=== PATIENT | male | born 1970 | race Caucasian/White ===

== ENCOUNTER 2024-01-24 07:27 | Inpatient (IN) | payer OTHER ==
[~2024-01-24] VITALS: Ht 162.6 cm; Wt 72.6 kg
[2024-01-24] VITALS (8 sets, daily range): BP systolic 119–134; BP diastolic 78–79; PULSE 66–86; RESP 14–20; TEMP 97.7–98; O2SAT 94–99
[~2024-01-24 07:27] MED LIST: ATIVAN1 MG PO; HYDROCODONE-ACET5 M1; TOBRAMYCIN 1.2GM BULK BOTTLE ONE; TYLENOL325 MG PO; Vancomycin IV 1 GM VIAL ONE
[2024-01-24] MEDS ORDERED: SODIUM CHLORIDE 0.9% 500ML 500 ML ONE (08:05)
[2024-01-24] MEDS ORDERED: Vancomycin IV 1,000 MG ONE (08:05)
[2024-01-24] MEDS ORDERED: TRANEXAMIC ACID 20 ML ONE (08:06)
[2024-01-24] MEDS: Vancomycin IV 1 GM VIAL ONE (09:05)
[2024-01-24] MEDS: LACTATED RINGER'S 1,000 ML ONE (09:05)
[2024-01-24] MEDS: DEXAMETHASONE SOD PHOS 10 MG/1 ML VIAL ONE (09:06)
[2024-01-24] MEDS: GABAPENTIN 300 MG CAP ONE (09:06)
[2024-01-24] MEDS: CELECOXIB 200 MG CAP ONE (09:06)
[2024-01-24] MEDS: SODIUM CHLORIDE 0.9% 250ML 250 ML ONE (09:07)
[2024-01-24] MEDS ORDERED: ACETAMINOPHEN 650 MG SUPP PR PRN (12:00)
[2024-01-24] MEDS ORDERED: ONDANSETRON HCL INJ 2MG/ML 2ML 2 MG/ML VIAL IV PRN (12:00)
[2024-01-24] MEDS ORDERED: DIPHENHYDRAMINE HCL INJ 50 MG/ML VIAL IV PRN (12:00)
[2024-01-24] MEDS ORDERED: DOCUSATE SODIUM 100 MG CAP PO PRN (12:00)
[2024-01-24] MEDS: HYDROMORPHONE 1MG/1ML INJ ONE ×2 (12:12→12:47)
[2024-01-24] MEDS: HYDROCODONE/APAP 7.5MG-325MG 1 EA TAB PO PRN (12:40)
[2024-01-24] MEDS ORDERED: HYDROMORPHONE 1MG/1ML INJ ONE (12:56)
[2024-01-24] MEDS ORDERED: LIDOCAINE HCL 2% LOCAL INJ 5 ML SDV VIAL INJ ONE (12:56)
[2024-01-24] MEDS ORDERED: PROPOFOL IV EMULSION 10 MG/ML 20 ML VIAL ONE (12:56)
[2024-01-24] MEDS ORDERED: ONDANSETRON HCL INJ 2MG/ML 2ML 2 MG/ML VIAL ONE (12:56)
[2024-01-24] MEDS ORDERED: SEVOFLURANE INHAL SOLN 250 ML PEN BTL ONE (12:56)
[2024-01-24] MEDS ORDERED: SODIUM CHLORIDE 0.9% INJ 100 ML BAG ONE (12:56)
[2024-01-24] MEDS ORDERED: DEXMEDETOMIDINE HCL 200 MCG/2 ML VIAL ONE (12:56)
[2024-01-24] MEDS ORDERED: ACETAMINOPHEN 1000 MG/100 ML IV ONE (12:56)
[2024-01-24] MEDS ORDERED: DEXAMETHASONE SOD PHOS INJ 4 MG/ML SDV ONE (12:56)
[2024-01-24] MEDS: ROPIVACAINE 246.25 MG, EPINEPHRINE HCL 1:1000 1ML 0.5 MG, CLONIDINE HCL 0.08 MG, KETORO... INJ ONE (13:22)
[2024-01-24] MEDS ORDERED: ROPIVACAINE 0.5% 5 MG/ML 30 ML SDV ONE (13:43)
[2024-01-24] MEDS: NICOTINE 21 MG/EA PATCH TOP PRN (14:32)
[2024-01-24] MEDS: LORAZEPAM 1 MG TAB PO PRN (14:32)
[2024-01-24] MEDS ORDERED: ACETAMINOPHEN 1000 MG/100 ML IV PRN (15:00)
[2024-01-24 15:33] LABS: BASOPHILS % 0.3 % (0.0-1.0); EOSINOPHILS % 0.1 % (0.0-6.0); HEMATOCRIT 37.3 % (38.2-49.6); HEMOGLOBIN 12.1 g/dL (14.0-18.0); LYMPHOCYTES # (AUTO) 0.5 (1.0-3.2); LYMPHOCYTES % 5.9 % (18.0-39.1); MEAN CORPUSCULAR HGB CONC 32.4 g/dL (31-35); MEAN CORPUSCULAR VOLUME 89.4 fL (81-99); MONOCYTES % 0.3 % (4.4-11.3); NEUTROPHILS % 92.7 % (38.7-80.0); PLATELET COUNT 414 x10e3/uL (140-360); RED BLOOD COUNT 4.17 x10e6/uL (4.3-5.7); RED CELL DISTRIBUTION WIDTH 15.7 % (11.7-14.4); WHITE BLOOD COUNT 8.65 x10e3/uL (4.8-10.8)
[2024-01-24] MEDS: SODIUM CHLORIDE 0.9% 1000ML 1,000 ML IV SCH (16:20)
[2024-01-24] MEDS: CELECOXIB 200 MG CAP PO SCH (16:21)
[2024-01-24] MEDS: ASPIRIN 325 MG TAB PO SCH (16:21)
[2024-01-24] MEDS ORDERED: FENTANYL CITRATE/PF 100MCG/2 ML INJ ONE (17:22)
[2024-01-24] MEDS ORDERED: MIDAZOLAM HCL 2 MG/2 ML VIAL ONE (17:22)
[2024-01-24] MEDS ORDERED: Vancomycin IV 1 GM in SODIUM CHLORIDE 0.9% 250ML 250 ML IV SCH (18:00)
[2024-01-24] MEDS: Vancomycin IV 1 GM in SODIUM CHLORIDE 0.9% 250ML 250 ML IV SCH (19:50)
[2024-01-25] VITALS (10 sets, daily range): BP systolic 121–139; BP diastolic 73–87; PULSE 53–74; RESP 16–20; TEMP 97.3–98.4; O2SAT 96–100
[2024-01-25] MEDS ORDERED: POLYETHYLENE GLYCOL 3350 17 GM PACK PO PRN (00:15)
[2024-01-25] MEDS ORDERED: HYDRALAZINE HCL 20 MG/ML VIAL IV PRN (00:15)
[2024-01-25 06:47] LABS: BASOPHILS % 0.2 % (0.0-1.0); EOSINOPHILS % 0.1 % (0.0-6.0); HEMATOCRIT 35.4 % (38.2-49.6); HEMOGLOBIN 11.3 g/dL (14.0-18.0); LYMPHOCYTES # (AUTO) 1.9 (1.0-3.2); MEAN CORPUSCULAR HEMOGLOBIN 28.7 pg (28-32); MEAN CORPUSCULAR HGB CONC 31.9 g/dL (31-35); MEAN CORPUSCULAR VOLUME 89.8 fL (81-99); MONOCYTES % 6.5 % (4.4-11.3); NEUTROPHILS # (AUTO) 12.8 (2.1-6.9); NEUTROPHILS % 80.7 % (38.7-80.0); PLATELET COUNT 382 x10e3/uL (140-360); RED BLOOD COUNT 3.94 x10e6/uL (4.3-5.7); RED CELL DISTRIBUTION WIDTH 15.2 % (11.7-14.4); WHITE BLOOD COUNT 15.88 x10e3/uL (4.8-10.8)
[2024-01-25 07:23] LABS: ALBUMIN 3.2 g/dL (3.5-5.0); ALKALINE PHOSPHATASE 81 IU/L (40-150); ANION GAP 11.7 mmol/L (8-16); BILIRUBIN,TOTAL 0.3 mg/dL (0.2-1.2); BLOOD UREA NITROGEN 14 mg/dL (7-26); BUN/CREATININE RATIO 20 (6-25); CALCIUM 8.8 mg/dL (8.4-10.2); CARBON DIOXIDE 23 mmol/L (22-29); CHLORIDE 108 mmol/L (98-107); CHOL/HDL RATIO 3.2 (3.9-4.7); CHOLESTEROL 184 MD/DL (0-199); CREATININE, SERUM 0.69 mg/dL (0.72-1.25); EST GLOMERULAR FILTRATION RATE 110 ML/MIN (>=60); GLUCOSE 124 mg/dL (74-118); HDL CHOLESTEROL 57 MG/DL (40-60); LDL CHOLESTEROL 111 MG/DL (60-130); MAGNESIUM 1.9 MG/DL (1.3-2.1); PHOSPHORUS 2.5 MG/DL (2.3-4.7); POTASSIUM 3.7 mmol/L (3.5-5.1); SODIUM 139 mmol/L (136-145); TOTAL PROTEIN 6.4 g/dL (6.5-8.1); TRIGLYCERIDES 78 MG/DL (0-149)
[2024-01-25 07:29] LABS: ALANINE AMINOTRANSFERASE < 6 IU/L (0-55)
[2024-01-25 07:45] LABS: FREE T4 (FREE THYROXINE) 1.11 ng/dL (0.8-1.8)
[2024-01-25] MEDS: DOCUSATE SODIUM 100 MG CAP PO SCH (09:00)
[2024-01-25] MEDS: FAMOTIDINE 20 MG/2 ML VIAL IV SCH (10:15)
[2024-01-25] MEDS: HYDROCODONE/APAP 5MG-325MG TAB PO PRN (11:34)
[2024-01-25] MEDS ORDERED: DRONABINOL10 MG PO (16:04)
[2024-01-25] MEDS ORDERED: HYDROCODON-ACE1 EA12 PO (16:04)
[2024-01-25] MEDS ORDERED: CETIRIZINE HCL10 MG PO (16:04)
[2024-01-25] MEDS ORDERED: ATIVAN0.5 MG PO (16:04)
[2024-01-25] MEDS: ZOLPIDEM TARTRATE 5 MG TAB PO PRN (21:49)
[2024-01-26] VITALS (10 sets, daily range): BP systolic 115–149; BP diastolic 74–94; PULSE 53–66; RESP 16–20; TEMP 97.5–98.1; O2SAT 98–100
[2024-01-26 06:22] LABS: BASOPHILS # (AUTO) 0.1 (0.0-0.1); BASOPHILS % 0.8 % (0.0-1.0); EOSINOPHILS # (AUTO) 0.2 (0.0-0.4); EOSINOPHILS % 1.6 % (0.0-6.0); HEMATOCRIT 34.6 % (38.2-49.6); HEMOGLOBIN 10.9 g/dL (14.0-18.0); LYMPHOCYTES # (AUTO) 4.3 (1.0-3.2); LYMPHOCYTES % 39.9 % (18.0-39.1); MEAN CORPUSCULAR HEMOGLOBIN 28.8 pg (28-32); MEAN CORPUSCULAR HGB CONC 31.5 g/dL (31-35); MEAN CORPUSCULAR VOLUME 91.3 fL (81-99); MONOCYTES # (AUTO) 0.6 (0.2-0.8); MONOCYTES % 5.9 % (4.4-11.3); NEUTROPHILS # (AUTO) 5.5 (2.1-6.9); NEUTROPHILS % 51.4 % (38.7-80.0); PLATELET COUNT 367 x10e3/uL (140-360); RED BLOOD COUNT 3.79 x10e6/uL (4.3-5.7); RED CELL DISTRIBUTION WIDTH 16.1 % (11.7-14.4); WHITE BLOOD COUNT 10.69 x10e3/uL (4.8-10.8)
[2024-01-26 06:41] LABS: ANION GAP 11.7 mmol/L (8-16); CALCIUM 8.8 mg/dL (8.4-10.2); CREATININE, SERUM 0.68 mg/dL (0.72-1.25); POTASSIUM 3.7 mmol/L (3.5-5.1)
[2024-01-26] MEDS ORDERED: ASPIRIN81 MG PO (16:56)
[2024-01-27] VITALS (8 sets, daily range): BP systolic 118–149; BP diastolic 72–82; PULSE 53–64; RESP 16–18; TEMP 97.8–98.1; O2SAT 95–100
[2024-01-27] MEDS: FAMOTIDINE 20 MG TAB PO SCH (08:05)
[2024-01-27] MEDS: ACETAMINOPHEN 325 MG TAB PO PRN (16:00)
[2024-01-27] MEDS: Vancomycin IV 1 GM in SODIUM CHLORIDE 0.9% 250ML 250 ML IV SCH (17:07)
[2024-01-27] MEDS: ONDANSETRON HCL 4 MG ORAL DISINTEGRATING TAB PO PRN (18:32)
[2024-01-28] VITALS (10 sets, daily range): BP systolic 121–143; BP diastolic 78–86; PULSE 55–64; RESP 17–20; TEMP 97.5–98.2; O2SAT 94–100
[2024-01-29] VITALS (10 sets, daily range): BP systolic 119–139; BP diastolic 67–83; PULSE 55–66; RESP 16–18; TEMP 97.4–98.2; O2SAT 97–100
[2024-01-29 05:29] LABS: BASOPHILS # (AUTO) 0.1 (0.0-0.1); BASOPHILS % 1.1 % (0.0-1.0); EOSINOPHILS # (AUTO) 0.6 (0.0-0.4); EOSINOPHILS % 7.1 % (0.0-6.0); HEMATOCRIT 36.7 % (38.2-49.6); HEMOGLOBIN 11.7 g/dL (14.0-18.0); LYMPHOCYTES # (AUTO) 2.8 (1.0-3.2); LYMPHOCYTES % 33.2 % (18.0-39.1); MEAN CORPUSCULAR HEMOGLOBIN 28.7 pg (28-32); MEAN CORPUSCULAR HGB CONC 31.9 g/dL (31-35); MEAN CORPUSCULAR VOLUME 90.2 fL (81-99); MONOCYTES # (AUTO) 0.6 (0.2-0.8); MONOCYTES % 6.6 % (4.4-11.3); NEUTROPHILS # (AUTO) 4.3 (2.1-6.9); NEUTROPHILS % 51.4 % (38.7-80.0); PLATELET COUNT 366 x10e3/uL (140-360); RED BLOOD COUNT 4.07 x10e6/uL (4.3-5.7); RED CELL DISTRIBUTION WIDTH 15.3 % (11.7-14.4); WHITE BLOOD COUNT 8.43 x10e3/uL (4.8-10.8)
[2024-01-29 05:52] LABS: ANION GAP 13.7 mmol/L (8-16); CALCIUM 9.2 mg/dL (8.4-10.2); CREATININE, SERUM 0.79 mg/dL (0.72-1.25); MAGNESIUM 1.9 MG/DL (1.3-2.1); PHOSPHORUS 3.3 MG/DL (2.3-4.7); POTASSIUM 3.7 mmol/L (3.5-5.1)
[2024-01-30] VITALS (8 sets, daily range): BP systolic 121–142; BP diastolic 78–86; PULSE 54–64; RESP 17–21; TEMP 97.4–98.1; O2SAT 96–100
== END 2024-01-30 22:18 | disposition home or self-care (01) | DRG 467 ==
LOC: OR 07:27 → PACU V 11:47 → MED/SURG3 13:32
PROVIDERS: ADMIT Specialist; ATTEND Specialist
PROC: 0SRD0EZ Replacement of Left Knee Joint with Articulating Spacer, Open Approach (ICD-10-PCS; 2024-01-24)
PROC: B548ZZA Ultrasonography of Superior Vena Cava, Guidance (ICD-10-PCS; principal; 2024-01-24 09:59)
PROC: 02HV33Z Insertion of Infusion Device into Superior Vena Cava, Percutaneous Approach (ICD-10-PCS; principal; 2024-01-24 09:59)
PROC: 0SPD0JZ Removal of Synthetic Substitute from Left Knee Joint, Open Approach (ICD-10-PCS; principal; 2024-01-24 09:59)
DX: T84.54XA Infection and inflammatory reaction due to internal left knee prosthesis, initial encounter (principal); M00.062 Staphylococcal arthritis, left knee; T84.84XA Pain due to internal orthopedic prosthetic devices, implants and grafts, initial encounter; B95.7 Other staphylococcus as the cause of diseases classified elsewhere; Y79.2 Prosthetic and other implants, materials and accessory orthopedic devices associated with adverse incidents; Y92.89 Other specified places as the place of occurrence of the external cause; M25.562 Pain in left knee; M25.561 Pain in right knee; F41.9 Anxiety disorder, unspecified; E78.5 Hyperlipidemia, unspecified; R26.2 Difficulty in walking, not elsewhere classified; G62.9 Polyneuropathy, unspecified; F17.210 Nicotine dependence, cigarettes, uncomplicated; Z79.899 Other long term (current) drug therapy
CPT/HCPCS: 36415; 36568; 36569; 71045; 80048; 80053; 80061; 80202; 83036; 83735; 84100; 84439; 84443; 85025; 86850; 86900; 87071; 87075; 87205; 88305; 88331; 88332; 94799; C1713; J0171; J1100; J1170; J1885; J2001; J2250; J2405; J2795; J3370; J7030; J7040; J7050; Q0162

== ENCOUNTER 2024-07-03 06:38 | Inpatient (IN) | payer OTHER ==
[~2024-07-03] VITALS: Ht 162.6 cm; Wt 72.6 kg
[2024-07-03] VITALS (7 sets, daily range): BP systolic 114–150; BP diastolic 59–87; PULSE 63–80; RESP 16–20; TEMP 97.3–97.8; O2SAT 97–99
[~2024-07-03 06:38] MED LIST changes: +ASPIRIN81 MG PO; +ATIVAN0.5 MG PO; +CETIRIZINE HCL10 MG PO; +DRONABINOL10 MG PO; +HYDROCODON-ACE1 EA12 PO; +HYDROCODON-ACE1 EAC9; -TOBRAMYCIN 1.2GM BULK BOTTLE ONE; -Vancomycin IV 1 GM VIAL ONE
[2024-07-03] MEDS ORDERED: SODIUM CHLORIDE 0.9% 500ML 500 ML ONE (07:16)
[2024-07-03] MEDS ORDERED: TRANEXAMIC ACID 20 ML ONE (07:16)
[2024-07-03] MEDS ORDERED: Vancomycin IV 500 MG ONE (07:16)
[2024-07-03] MEDS: LACTATED RINGER'S 1,000 ML ONE (07:20)
[2024-07-03] MEDS: DEXAMETHASONE SOD PHOS 10 MG/1 ML VIAL ONE (07:21)
[2024-07-03] MEDS: CELECOXIB 200 MG CAP ONE (07:21)
[2024-07-03] MEDS: GABAPENTIN 300 MG CAP ONE (07:21)
[2024-07-03 07:30] LABS: BASOPHILS # (AUTO) 0.1 (0.0-0.1); EOSINOPHILS # (AUTO) 0.5 (0.0-0.4); EOSINOPHILS % 4.7 % (0.0-6.0); HEMATOCRIT 39.3 % (38.2-49.6); LYMPHOCYTES # (AUTO) 3.3 (1.0-3.2); LYMPHOCYTES % 30.7 % (18.0-39.1); MEAN CORPUSCULAR HEMOGLOBIN 31.2 pg (28-32); MEAN CORPUSCULAR HGB CONC 33.1 g/dL (31-35); MEAN CORPUSCULAR VOLUME 94.2 fL (81-99); MONOCYTES # (AUTO) 0.8 (0.2-0.8); MONOCYTES % 7.6 % (4.4-11.3); NEUTROPHILS % 55.6 % (38.7-80.0); PLATELET COUNT 402 x10e3/uL (140-360); RED BLOOD COUNT 4.17 x10e6/uL (4.3-5.7); RED CELL DISTRIBUTION WIDTH 14.5 % (11.7-14.4); WHITE BLOOD COUNT 10.72 x10e3/uL (4.8-10.8)
[2024-07-03] MEDS ORDERED: ACETAMINOPHEN 650 MG SUPP PR PRN (11:15)
[2024-07-03] MEDS ORDERED: HYDROCODONE/APAP 7.5MG-325MG 1 EA TAB PO PRN (11:15)
[2024-07-03] MEDS ORDERED: DIPHENHYDRAMINE HCL INJ 50 MG/ML VIAL IV PRN (11:15)
[2024-07-03] MEDS ORDERED: ONDANSETRON HCL INJ 2MG/ML 2ML 2 MG/ML VIAL IV PRN (11:15)
[2024-07-03] MEDS ORDERED: HYDROCODONE/APAP 5MG-325MG TAB PO PRN (11:15)
[2024-07-03] MEDS ORDERED: DOCUSATE SODIUM 100 MG CAP PO PRN (11:15)
[2024-07-03] MEDS: FENTANYL CITRATE/PF 100MCG/2 ML INJ ONE (11:35)
[2024-07-03] MEDS: HYDROMORPHONE 1MG/1ML INJ ONE (12:00)
[2024-07-03] MEDS ORDERED: ONDANSETRON HCL INJ 2MG/ML 2ML 2 MG/ML VIAL ONE (12:00)
[2024-07-03] MEDS ORDERED: ROCURONIUM BROMIDE 10 MG/ML 5ML VIAL IV ONE (12:00)
[2024-07-03] MEDS ORDERED: PROPOFOL IV EMULSION 10 MG/ML 20 ML VIAL ONE (12:00)
[2024-07-03] MEDS ORDERED: LIDOCAINE HCL 2% LOCAL INJ 5 ML SDV VIAL INJ ONE (12:00)
[2024-07-03] MEDS ORDERED: SEVOFLURANE INHAL SOLN 250 ML PEN BTL ONE (12:00)
[2024-07-03] MEDS ORDERED: ROPIVACAINE 0.5% 5 MG/ML 30 ML SDV ONE (12:03)
[2024-07-03] MEDS ORDERED: LIDOCAINE 2%/ EPINEPHRINE 20ML MDV ONE (12:03)
[2024-07-03] MEDS ORDERED: FENTANYL CITRATE/PF 100MCG/2 ML INJ ONE (12:12)
[2024-07-03] MEDS ORDERED: MIDAZOLAM HCL 2 MG/2 ML VIAL ONE (12:12)
[2024-07-03] MEDS: HYDROCODONE/APAP 10MG-325MG TAB ONE (12:23)
[2024-07-03] MEDS: OXYCODONE HCL IR 15 MG TAB PO PRN (13:30)
[2024-07-03] MEDS: LORAZEPAM 1 MG TAB PO PRN (13:46)
[2024-07-03] MEDS: ACETAMINOPHEN 1000 MG/100 ML IV SCH (13:47)
[2024-07-03] MEDS: SODIUM CHLORIDE 0.9% 1000ML 1,000 ML IV SCH (13:48)
[2024-07-03] MEDS: CLINDAMYCIN PHOS 900MG/ 50ML 50 ML IV ONE (15:13)
[2024-07-03] MEDS: ROPIVACAINE 246.25 MG, EPINEPHRINE HCL 1:1000 1ML 0.5 MG, CLONIDINE HCL 0.08 MG, KETORO... INJ ONE (15:14)
[2024-07-03] MEDS: ASPIRIN 325 MG TAB PO SCH (17:04)
[2024-07-03] MEDS: CELECOXIB 200 MG CAP PO SCH (17:04)
[2024-07-03] MEDS: ZOLPIDEM TARTRATE 5 MG TAB PO PRN (22:09)
[2024-07-04 00:39] VITALS: BP 117/65; PULSE 65; RESP 16; TEMP 98; O2SAT 98
[2024-07-04 04:23] VITALS: BP 115/67; PULSE 60; RESP 18; TEMP 97.8; O2SAT 100
[2024-07-04 05:39] LABS: HEMATOCRIT 36.8 % (38.2-49.6); HEMOGLOBIN 12.1 g/dL (14.0-18.0)
[2024-07-04 06:26] LABS: ANION GAP 11.3 mmol/L (8-16); CALCIUM 9.1 mg/dL (8.4-10.2); CREATININE, SERUM 0.8 mg/dL (0.72-1.25); PHOSPHORUS 3.1 MG/DL (2.3-4.7); POTASSIUM 4.3 mmol/L (3.5-5.1)
[2024-07-04 06:35] VITALS: PULSE 72; RESP 20; O2SAT 98
[2024-07-04 09:00] VITALS: BP_SYST 114; BP_SYST 115; BP_DIAS 59; BP_DIAS 67; PULSE 63; PULSE 72; RESP 18; RESP 20; TEMP 97.8; O2SAT 97; O2SAT 98
[2024-07-04 09:45] VITALS: BP 139/78; PULSE 65; RESP 18; TEMP 98; O2SAT 97
[2024-07-04] MEDS ORDERED: [UNRECOGNIZED DRUG - REMARK] (12:30)
[2024-07-04 13:11] VITALS: BP 138/79; PULSE 58; RESP 19; TEMP 98; O2SAT 99
== END 2024-07-04 16:20 | disposition home or self-care (01) | DRG 467 ==
LOC: OR 06:38 → PACU V 11:10 → MED/SURG3 13:07
PROVIDERS: ADMIT Specialist; ATTEND Specialist
PROC: 0SPD08Z Removal of Spacer from Left Knee Joint, Open Approach (ICD-10-PCS; principal; 2024-07-03 09:01)
PROC: 0SBD0ZZ Excision of Left Knee Joint, Open Approach (ICD-10-PCS; principal; 2024-07-03 09:01)
PROC: 0SRD0J9 Replacement of Left Knee Joint with Synthetic Substitute, Cemented, Open Approach (ICD-10-PCS; principal; 2024-07-03 09:01)
DX: Z47.33 Aftercare following explantation of knee joint prosthesis (principal); F33.0 Major depressive disorder, recurrent, mild; E78.5 Hyperlipidemia, unspecified; J30.2 Other seasonal allergic rhinitis; F41.9 Anxiety disorder, unspecified; G47.00 Insomnia, unspecified; Z79.82 Long term (current) use of aspirin; Z88.5 Allergy status to narcotic agent; F17.210 Nicotine dependence, cigarettes, uncomplicated
CPT/HCPCS: 36415; 80048; 83735; 84100; 85014; 85018; 85025; 86850; 86900; 87071; 87075; 87205; 94799; C1713; C1776; J0171; J0690; J1100; J1170; J1885; J2001; J2250; J2405; J2795; J3370; J7030; J7040